=== PATIENT | male | born 1985 | race Caucasian/White ===

== ENCOUNTER 2022-07-23 06:35 | Outpatient (CLI) | payer BC, SELFPAY ==
[2022-07-23 06:47] VITALS: BP 115/77; PULSE 66; RESP 16; TEMP 36.9; O2SAT 95
[2022-07-23 08:01] VITALS: BP 110/77; PULSE 72; RESP 16; O2SAT 98
== END 2022-07-23 08:05 | disposition home or self-care (01) ==
PROVIDERS: PCP Student in an Organized Health Care Education/Training Program; Visit Provider Family Medicine
DX: M72.2 Plantar fascial fibromatosis (principal)
CPT/HCPCS: 76942; J3490

== ENCOUNTER 2024-02-03 22:38 | Inpatient (IN) | payer OTHER, SELFPAY ==
[2024-02-03 22:51] VITALS: BP 150/97; PULSE 61; RESP 16; TEMP 37; O2SAT 98; BMI 24.4
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
--- NOTE | 2024-02-03 23:18 | CRLHL7_ITS ---
For Patients: As a result of the Century Cures Act, medical imaging exams and procedure reports are released immediately into your electronic medical record. You may view this report before your referring provider. If you have questions, please contact your health care provider. INDICATION: Leg pain and swelling. TECHNIQUE: Ultrasound venous duplex lower right extremity. Compression venous exam was performed using kang-scale, color Doppler, and spectral Doppler analysis. COMPARISON: None. FINDINGS: Deep veins: Sonographic imaging demonstrates the right common femoral, deep femoral, superficial femoral, popliteal, posterior tibial, and the contralateral left common femoral veins to be fully compressible with normal color Doppler blood flow. Superficial veins: Greater saphenous vein is fully compressible. No popliteal cyst. Multiple enlarged lymph nodes in the right proximal thigh. IMPRESSION: 1. No sign of deep venous thrombosis in the right lower extremity. 2. Incidental note of multiple enlarged lymph nodes in the right proximal thigh, nonspecific possibly reactive. Dictated by Willi Curry MD @ 02/04/2024 12:31:12 AM (Electronically Signed)
[2024-02-03 23:51] LABS: Basophils Absolute Auto 0.02 K/uL (0.00-0.30); Basophils Percent Auto 0.2 % (0.0-3.0); Eosinophils Absolute Auto 0.21 K/uL (0.00-0.50); Eosinophils Percent Auto 2.3 % (0.0-7.0); Hematocrit 35.5 % (37.0-53.0); Hemoglobin* 11.6 gm/dL (13.5-17.5); Immature Granulocytes Pct Auto 1.1 %; Lymphocytes Percent Auto 14.2 % (20-44); Mean Corpuscular HGB Conc 33 gm/dL (32-36); Mean Corpuscular Hemoglobin 29 pg (26-34); Mean Corpuscular Volume 90 fL (80-100); Monocytes Percent Auto 11.3 % (0.0-11.0); Neutrophils Percent Auto 70.9 % (42.0-72.0); Platelet Count* 212 K/uL (140-440); RDW Coefficient of Variation % 12.8 % (11.5-15.5); Red Blood Count 3.96 m/uL (4.30-5.90); White Blood Count* 9.17 K/uL (4.50-11.00)
[2024-02-03 23:59] LABS: Slide Review Reflex No
[2024-02-04] VITALS (7 sets, daily range): BP systolic 124–143; BP diastolic 68–93; PULSE 52–62; RESP 16–18; TEMP 36.3–36.8; O2SAT 96–99; BMI 26.3
[2024-02-04 00:05] LABS: Chloride* 105 mmol/L (96-114); Potassium* 3.4 mmol/L (3.6-5.1); Sodium* 138 mmol/L (135-149)
[2024-02-04 00:08] LABS: Creatinine* 0.9 mg/dL (0.5-1.5); Est. Creatinine Clearance* 128.23; Estimated Glomerular Filt Rate 114 ml/min
[2024-02-04 00:09] LABS: Anion Gap 6 mEq/L (7-15); Blood Urea Nitrogen* 15 mg/dL (5-24); Carbon Dioxide* 27 mmol/L (20-32); Glucose* 121 mg/dL (60-115)
[2024-02-04] MEDS: VANCOMYCIN 1.5 GM/300 ML 1.5 GM/300 ML PIGGYBACK IVPB ×2 (00:19→11:47)
[2024-02-04 00:26] LABS: Procalcitonin* 0.09 ng/mL (<0.50)
--- OUTSIDE RECORDS SUMMARY | 2024-02-04 00:28 | XMS_ITS | Clinical Summary ---
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 [facility] Aspartate Aminotransferase (AST), P 43 8 - 48 U/L 01/28/2024 4:09 PM CDT [facility] Comment: Specimen was received with hemolysis slightly above the acceptable threshold. The AST result may be falsely elevated by 5-10 U/L due to this degree of hemolysis. Interpret in conjunction with other laboratory and clinical findings. Blood (Blood, Venous) 01/28/2024 3:26 PM CDT 01/28/2024 3:37 PM CDT Wolf Brower M.D. LAB BLOOD ADD-ON [facility] [address] [place] [address] * Lipase (01/28/2024 3:26 PM CDT) [facility] Lipase, S 43 13 - 60 U/L 01/28/2024 4: 13 PM CDT DTL Blood (Blood, Venous) 01/28/2024 3:26 PM CDT 01/28/2024 3:55 PM CDT Wolf Brower M.D. LAB BLOOD ADD-ON Performing Organization Address City/[facility]/ZIP Co de Phone Number [facility] [address] [place] [address], [facility] [address] [place] [address] * Amylase, Total (01/28/2024 3:26 PM CDT) Amylase, Total, S 65 28 - 100 U/L 01/28/2024 4:13 PM CDT DTL Blood (Blood, Venous) 01/28/2024 3:26 PM CDT 01/28/2024 3:55 PM CDT Wolf Brower M.D. LAB BLOOD ADD-ON Performing Organization Address City/[facility]/ZIP Co de Phone Number [facility] [address] [place] [address], [facility] 200 [place] [address] * (ABNORMAL) Basic Metabolic Panel (01/28/2024 3:26 PM CDT) Potassium, P 3.9 3.6 - 5.2 mmol/L 01/28/2024 4:10 PM CDT [facility] Sodium, P 138 135 - 145 mmol/L 01/28/2024 4:10 PM CDT [facility] Chloride, P 100 98 - 107 mmol/L 01/28/2024 4:10 PM CDT [facility] Bicarbonate, P 27 22 - 29 mmol/L 01/28/2024 4:10 PM CDT [facility] Anion Gap, P 11 7 - 15 01/28/2024 4:10 PM CDT [facility] BUN (Blood Urea Nitrogen), P 23 8 - 24 mg/dL 01/28/2024 4:10 PM CDT [facility] Creatinine 1.17 0.74 - 1.35 mg/dL 01/28/2024 4:10 PM CDT [facility] Estimated GFR (eGFR) 83 >=60 mL/min/BSA 01/28/2024 4:10 PM CDT [facility] Comment: Estimated GFR calculated using the 2020 CKD_EPI creatinine equation. Calcium, Total, P 10.1(H) 8.6 - 10.0 mg/dL 01/28/2024 4:10 PM CDT [facility] Glucose, P 129 70 - 140 mg/dL 01/28/2024 4:10 PM CDT [facility] Blood (Blood, Venous) 01/28/2024 3:26 PM CDT 01/28/2024 3:37 PM CDT Wolf Brower M.D. LAB BLOOD ADD-ON [facility] [address] [place] [address], [facility] 200 [place] [address] * DX Chest Portable 1 View (01/28/2024 3:24 PM CDT) Anatomical Region Laterality Modality Chest, Thoracic RST LOS, Tho racic ARZ LOS, Thoracic FLA LOS N/A Digital Radiography Impressions 01/28/2024 3:44 PM CDT No comparison. No acute displaced rib fractures. Incomplete visualization of the left clavicle. Enlarged cardiac silhouette. Otherwise negative chest. Narrative 01/28/2024 3:44 PM CDT EXAM: ??DX CHEST PORTABLE 1 VIEW Procedure Note Isa Knapp M.B.B.S. - 01/28/2024 EXAM: DX CHEST PORTABLE 1 VIEW IMPRESSION: No comparison. No acute displaced rib fractures. Incomplete visualizationof the left clavicle. Enlarged cardiac silhouette. Otherwise negativechest. Wolf Brower M.D. IMG DIAGNOSTIC IM AGING PROCEDURES from Last 3 Months Care Teams Unmanned Equipment Operator Relationship Specialty Start Date End Date Ana Reynaga M.D. [address] [place] [address] [phone] PCP - General 08/03/20
--- OUTSIDE RECORDS SUMMARY | 2024-02-04 00:29 | XMS_ITS ---
Author Organization [facility] Address [address] [place] [address] Care Team Providers Care Drupal Developer Name Role Phone Unavailable Unavailable Unavailable Surgery Details Not on file Complications Check Surgery Details section. Procedure Estimated Blood Loss Check Surgery Details section. Procedure Findings Check Surgery Details section. Procedure Specimens Taken Check Surgery Details section.
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
--- OUTSIDE RECORDS SUMMARY | 2024-02-04 00:29 | XMS_ITS | Clinical Summary ---
Author Organization [facility] Address [address] [place] [id number] Phone Care Team Providers Care Competitive Intelligence Analyst Name Role Phone Unavailable Primary Care Provider Unavailabl e Source Comments Get[employer] is fully rolled out on [employer]. Last update 11/25/08.[facility] Allergies Active Allergy Reactions Criticality Noted Date [...] 01/31/2024 Infrapatellar bursitis of right knee 01/31/2024 Encounters Date Type Department Care Team Description 01/31/2024 7:17 AM CDT - 02/02/2024 12:26 PM CDT Hospital Encounter [facility] Orthopaedic [id number] [place] [address] Nory Joaquin MD Isaksen, MD Mariana Coles Robert K, MD Wilcox, Nicci Flores MD Cellulitis of right knee Discharge Disposition: Discharged to home or self care (routine discharge) 01/31/2024 Travel from Last 3 Months Social History Tobacco Use Types Packs/Day Years [...] 01/31/2024 8:51 PM CDT Plan of Treatment Health Maintenance Due Date Last Done Comments Asthma Action Plan 1987 Asthma Control Test 1987 Dental Oral Exam 1987 Dental Prophylaxis 1987 Dental X-Ray: Bitewings 1987 Depression Management 1987 Periodontal Maintenance 10/23/2001 HEALTH MAINTENANCE PROTOCOL 10/23/2006 Imm: HPV (3 - 3-dose SCDM series) 05/17/2022 02/22/2022, 04/16/2021 Imm: COVID-19 ( season) 2023 12/03/2020, 11/05/2020 Imm: Flu (#1) 02/22/2024 03/06/2022, 03/24, 03/23/2017, Additional history exists PREVENTATIVE VISIT 01/07/2025 01/08/2024, 02/12/2021 Imm: DTaP/Tdap (11 - Td or Tdap) 01/27/2034 01/28/2024, 04/23/2017, 01/08/2011, Additional history exists Imm: Zoster (1 of 2) 10/23/2037 Imm: Hib Completed 11/18/1990 Imm: HepB Completed 12/26/1999, 08/1998, 12/22/1998 Imm: HepA Aged Out 04/16/2021, 01/02/2015 No lo nger eligible based on patient's age to complete this topic Imm: Pneumonia Peds or At-Risk less than 65 years Aged Out 04/16/2021 No longer shubham gible based on patient's age to complete this topic HIV Screening Completed 01/08/2024, 10/21, 08/12/2022, Additional history exists Imm: Meningitis Aged Out No longer el igible based on patient's age to complete this [...] included. CO2 27 22 - 30 mmol/L [facility] Glucose 116(H) 70 - 100 mg/dL [facility] BUN 12 6 - 20 mg/dL [facility] Creatinine 0.97 0.70 - 1.25 mg/dL [facility] Calcium 8.3(L) 8.6 - 10.0 mg/dL [facility] Sodium 141 135 - 148 mmol/L [facility] Potassium 3.9 3.5 - 5.3 mmol/L [facility] Chloride 106 92 - 108 mmol/L [facility] eGFR (2021 CKD-EPI) 104 >=60 ml/min/1.7 3m2 [facility] Comment: The estimated glomerular filtration rate (eGFR) was calculated using the CKD-EPI 2020 creatinine equation, which does not include race as a factor. This equation is validated in individuals 18 years of age and older, and eGFR is normalized to a body surface area of 1.73m^2. AnGap 8 8 - 16 mmol/L [facility] Blood 02/02/2024 7:06 AM CDT 02/02/2024 7:41 AM CDT Nicci Wiseman MD LABORATORY [facility] [address] [address] * (ABNORMAL) C-REACTIVE PROTEIN (02/02/2024 7:06 AM CDT) Only the most recent of3 resultswithin the time period is included. Pathologist [facility] C-Reactive Protein 176(H) <=4 mg/L [facility] Blood 02/02/2024 7:06 AM CDT 02/02/2024 7:41 AM CDT Alex Peña MD LABORATORY [facility] [address] [address] * (ABNORMAL) CBC WITH PLATELET (02/02/2024 7:06 AM CDT) WBC 9.57 4.00 - 10.00 k/cmm [facility] RBC 3.71(L) 4.60 - 6.00 m/cmm [facility] Hgb 11.0(L) 13.1 - 17.5 g/dL [facility] Hematocrit 34.0(L) 40.0 - 51.0 % [facility] MCV 91.6 80.0 - 100.0 fL [facility] MCH 29.6 25.0 - 32.0 pg [facility] MCHC 32.4 31.0 - 36.0 g/dL [facility] RDW 12.8 11.5 - 14.5 % [facility] Plt 151 150 - 400 k/cmm [facility] MPV 10.1 6.5 - 12.5 fL [facility] Blood 02/02/2024 7:06 AM CDT 02/02/2024 7:41 AM CDT Nicci Wiseman MD LABORATORY [facility] [address] [address] * (ABNORMAL) CBC WITH PLTS/AUTO DIFF (02/01/2024 5:40 AM CDT) Only the most recent of2 resultswithin the time period is included. WBC 10.67(H) 4.00 - 10.00 k/cmm [facility] RBC 4.05(L) 4.60 - 6.00 m/cmm [facility] Hgb 11.9(L) 13.1 - 17.5 g/dL [facility] Hematocrit 36.9(L) 40.0 - 51.0 % [facility] MCV 91.1 80.0 - 100.0 fL [facility] MCH 29.4 25.0 - 32.0 pg [facility] MCHC 32.2 31.0 - 36.0 g/dL [facility] RDW 12.8 11.5 - 14.5 % [facility] Plt 151 150 - 400 k/cmm [facility] MPV 10.5 6.5 - 12.5 fL [facility] Automated Abs Neutrophil 8.58(H) 1.70 - 6.50 k/cmm [facility] Comment:Preliminary ANC, Fin al Result to Follow Abs Immature Granulocyte 0.06 0.00 - 0.09 k/cmm [facility] Comment:The Immature Granulo cyte Absolute count contains metamyelocytes and myelocytes. Abs Neutrophil 8.58(H) 1.70 - 6.50 k/cmm [facility] Abs Lymphocyte 0.95 0.80 - 4.00 k/cmm [facility] Abs Monocyte 1.03(H) 0.20 - 1.00 k/cmm [facility] Abs Eosinophil 0.03 0.00 - 0.60 k/cmm [facility] Abs Basophil 0.02 0.00 - 0.20 k/cmm [facility] Blood 02/01/2024 5:40 AM CDT 02/01/2024 6:17 AM CDT Lilliana Robertson MD LABORATORY [facility] [address] [address] * LACTATE (LACTIC ACID) (01/31/2024 12:56 PM CDT) Lactate 0.8 0.7 - 2.1 mmol/L [facility] Blood 01/31/2024 12:5 6 PM CDT 01/31/2024 1:01 PM CDT Narrative [facility] - 01/31/2024 1:02 PM CDT Send specimen on ice! Nory Joaquin MD LABORATORY Performing Organization Address [facility]/ZIP Co de Phone Number [facility] [address] [address] * BODY FLUID CELL COUNT/DIFF (01/31/2024 12:00 PM CDT) Fluid Type SV Synovial [facility] Comment:Normal reference ran ges have not been determined; clinical correlation is recommended. Volume SV Fluid 5 mL [facility] Appearance SV Fluid Cloudy [facility] Color bf Bloody [facility] Rbc SV Fluid 88,000 cells/ul [facility] Nuc Ct SV Fluid 4,076 cells/ul [facility] Neutrophils SV 75 % [facility] Lymphocytes SV 4 % [facility] MONO/MACS FL 21 % [facility] Synovial fluid STRUCTURE OF RIGHT KNEE REGION / Unknown 01/31/2024 12:00 PM CDT 01/31/2024 12:26 PM CDT Narrative [facility] - 01/31/2024 3:26 PM CDT Please prioritize cell count Nory Joaquin MD LABORATORY Performing Organization Address City/[facility]/ZIP Co de Phone Number [facility] [address] [address] * BODY FLUID CULTURE:INCLUDES GRAM STAIN (01/31/2024 12:00 PM CDT) Final Report No growth. [facility] Gram Stain Report Smear not concentrated. Few WBC's seen. No organisms seen. [facility] Synovial fluid STRUCTURE OF RIGHT KNEE REGION / Unknown 01/31/2024 12:00 PM CDT 01/31/2024 1:14 PM CDT Nory Joaquin MD LAB MICROBIOLOGY Performing Organization Address [facility] Co de Phone Number [facility] [address] [address] * ANTIBODY SCREEN (01/31/2024 10:49 AM CDT) Joy Screen Negative [facility] Blood 01/31/2024 10:4 9 AM CDT 01/31/2024 11:17 AM CDT Nory Joaquin MD LAB TRANSFUSION SER VICES Performing Organization Address [facility] Co de Phone Number [facility] [address] [address] * BLOOD TYPING-ABO/RH (01/31/2024 10:49 AM CDT) ABORHG A NEG [facility] Blood 01/31/2024 10:4 9 AM CDT 01/31/2024 11:17 AM CDT Nory Joaquin MD LAB TRANSFUSION SER VICES Performing Organization Address [facility] Co de Phone Number [facility] [address] [address] * CT RIGHT KNEE NO IV CONTRAST [...] Radiologist: Min Kirkpatrick Reading Resident: Amauri Interiano 01/31/2024 10:09 AM CDT [...] lateral to the knee joint initiated above [id number] caudally and extends to the mid tibia [...] and lateral to the kneejoint initiated above [id number] caudally and extends to the mid tibiadistally. [...] - BLUE (01/31/2024 8:18 AM CDT) Pathologist [facility] BLUE TUBE [facility] Comment:Blue top(Sodium citr ate) tubes are kept for 3 days from the collection date. Blood 01/31/2024 8:18 AM CDT 01/31/2024 8:22 AM CDT Nory Joaquin [facility] LABORATORY [facility] [address] [address] * (ABNORMAL) ED CHEMISTRY LABS(NA,K,CL,CO2,GLU,CREAT,CA-IONIZED,ANION GAP) (01/31/2024 8:18 AM CDT) Sodium 136 135 - 148 mmol/L [facility] Chloride 105 92 - 108 mmol/L [facility] AnGap 6(L) 8 - 16 mmol/L [facility] Glucose 109(H) 70 - 100 mg/dL [facility] ICA, Actual 4.39(L) 4.40 - 5.20 mg/dL [facility] ICA, pH Corrected 4.45 4.40 - 5.20 mg/dL [facility] Creatinine 0.97 0.70 - 1.25 mg/dL [facility] BICARB 26 22 - 26 mEq/L [facility] eGFR (2020 CKD-EPI) 104 >=60 ml/min/1.7 3m2 [facility] Comment: The estimated glomerular filtration rate (eGFR) was calculated using the CKD-EPI 2020 creatinine equation, which does not include race as a factor. This equation is validated in individuals 18 years of age and older, and eGFR is normalized to a body surface area of 1.73m^2. Potassium 3.6 3.5 - 5.3 mmol/L [facility] Blood 01/31/2024 8:18 AM CDT 01/31/2024 8:25 AM CDT Nory Joaquin MD LABORATORY Performing Organization Address [facility] Co de Phone Number [facility] [address] [address] * (ABNORMAL) SED RATE (ESR) (01/31/2024 8:18 AM CDT) Sed Rate 53(H) 2 - 10 mm/hr [facility] Blood 01/31/2024 8:18 AM CDT 01/31/2024 8:46 AM CDT Nory Joaquin MD LABORATORY Performing Organization Address [facility] de Phone Number [facility] [address] [address] * (ABNORMAL) PROTHROMBIN (PT) & INR (01/31/2024 8:18 AM CDT) PT 13.7(H) 9.0 - 12.5 sec [facility] INR 1.2(H) 0.8 - 1.1 [facility] Comment: Warfarin Therapeutic Range: Standard Intensity: 2.0 - 3.0 High Intensity: 2.5 - 3.5 Blood 01/31/2024 8:18 AM CDT 01/31/2024 11:03 AM CDT Nory Joaquin MD LABORATORY Performing Organization Address City/[facility] Co de Phone Number [facility] [address] [address] from Last 3 Months Advance Directives For more information, please contact: [phone] * Full Code (Latest Code Status on [...]
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
--- OUTSIDE RECORDS SUMMARY | 2024-02-04 00:30 | XMS_ITS | Encounter Summary ---
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 02/02/2024, Discharge Location: Home, Anticipated Discharge Time: Before 10 am, Discharge Medication Orders: DC Med Orders Final, Does not apply, PROTOCOL, Starting on Fri02/02/24 at 0957, Until Fri02/02/24 at 1535 escitalopram (LEXAPRO) tablet 20 mg 20 mg, Oral, DAILY, First dose (after last modification) on 01/31/24 at 2125, Until Discontinued 2148 (Given - Provider: Christine Guzman RN) 0855 (Given - Provider: Mack Still, ERI) 0853 (Given - Provider: Last Pierre RN) HYDROmorphone PF (DILAUDID) 1 mg/mL injection 0.5 mg (COMPLETED) 0.5 mg, IV Push, ONE TIME, 1 dose, On 01/31/24 at 1205 1205 (Given - Provider: Sophie Meraz RN) HYDROmorphone PF (DILAUDID) 1 mg/mL injection 0.5 mg (COMPLETED) 0.5 mg, IV Push, ONE TIME, 1 dose, On 01/31/24 at 1830 1832 (Given - Provider: Kayden Moore RN) ibuprofen (MOTRIN;ADVIL) tablet 600 mg (COMPLETED) 600 mg, Oral, ONE TIME, 1 dose, On 01/31/24 at 0815 1547 (Given - Provider: Sophie Meraz RN) ketorolac (TORADOL) 30 mg/mL injection 15 mg (CANCELED) 15 mg, IV Push, Q6H, 20 doses, First dose on Fri02/01/24 at 1645, Last dose on Fri02/06/24 at 1200 1655 (Given - Provider: JEREMIE Mccauley) levoFLOXacin (LEVAQUIN) tablet 750 mg 750 mg, Indication (Select One): Infection - Suspected, SITE (Select all that apply): Skin/Soft Tissue, Cultures Ordered? Yes, Oral, DAILY, 5 doses, First dose on Fri02/02/24 at 1000, Last dose on Fri02/06/24 at 0800 1033 (Given - Provider: Last Pierre RN) OLANZapine (ZyPREXA) injection 5 mg (COMPLETED) 5 mg, IV Push, ONE TIME, 1 dose, On 01/31/24 at 1540 1544 (Given - Provider: Sophie Meraz RN) ondansetron (ZOFRAN) 4 mg/2 mL injection 4 mg (COMPLETED) 4 mg, IV Push, ONE TIME, 1 dose, On 01/31/24 at 1010 1018 (Given - Provider: Sophie Meraz RN) piperacillin-tazobactam (ZOSYN) 4.5 g in NaCl 0.9% IVPB (CANCELED) 4.5 g, Indication (Select One): Infection - Confirmed, SITE (Select all that apply): Bone/Joint, Skin/Soft Tissue, Cultures Ordered? Yes, Intravenous, Q6H, First dose on 01/31/24 at 1245, Until Discontinued 1251 (New Bag - Provider: Sophie Meraz RN)1326 (Infusion completed - Provider: Sophie Meraz RN)1808 (New Bag - Provider: Sophie Meraz RN)1856 (Infusion completed - Provider: Sophie Meraz RN) 0037 (New Bag - Provider: Trini Ortiz, RN)0107 (Infusion completed - Provider: Trini Ortiz, RN)0537 (New Bag - Provider: Trini Ortiz, RN)0642 (Infusion completed - Provider: Trini Ortiz, RN)1214 (New Bag - Provider: Mack Still, ERI)1317 (Infusion completed - Provider: Mack Still RN)1810 (New Bag - Provider: JEREMIE Mccauley - Comment: rt hand)1857 (Infusion completed - Provider: Mack Still, ERI)2346 (New Bag - Provider: Carly Durham, ERI) 0016 (Infusion completed - Provider: Carly Durham RN)0527 (New Bag - Provider: Carly Durham, ERI)0557 (Infusion completed - Provider: Carly Durham, ERI) sennosides (SENOKOT) tablet 8.6 mg 8.6 mg, Oral, BID, First dose on 01/31/24 at 2050, Until Discontinued 2148 (Given - Provider: Christine Guzman RN) 0855 (Given - Provider: Mack Still, ERI)2022 (Given - Provider: Carly Durham, ERI) 0853 (Given - Provider: Last Pierre RN) sodium chloride 0.9% bolus 1,000 mL (COMPLETED) 1,000 mL, Intravenous, Administer over 30 Minutes, IV BOLUS, 1 dose, On 01/31/24 at 1555 1550 (New Bag - Provider: Sophie Meraz RN)1808 (Infusion completed - Provider: Sophie Meraz RN) vancomycin (VANCOCIN) 2,000 mg in NaCl 0.9% 500 mL IVPB (COMPLETED) 2,000 mg (rounded from 2,075 mg = 25 mg/kg ? 83 kg Order-specific weight), Dose By? Phamacist to Dose, Indication (Select One): Infection - Confirmed, SITE (Select all that apply): Bone/Joint, Skin/Soft Tissue, Cultures Ordered? Yes, Intravenous, ONE TIME, 1 dose, On 01/31/24 at 1245 1358 (New Bag - Provider: Sophie Meraz RN)1638 (Infusion completed - Provider: Kayden Moore RN) vancomycin (VANCOCIN) 2,000 mg in NaCl 0.9% 500 mL IVPB (CANCELED) 2,000 mg, Indication (Select One): Infection - Suspected, SITE (Select all that apply): Skin/Soft Tissue, Cultures Ordered? Yes, Dose By? Phamacist to Dose, Intravenous, Q12H, First dose on 02/01/24 at 0200, Until Discontinued 0203 (New Bag - Provider: Trini Ortiz RN)0433 (Infusion completed - Provider: Trini Ortiz RN)1412 (New Bag - Provider: JEREMIE Mccauley)1852 (Infusing - Provider: Mack Still RN - Comment: pt line went off at certain time vanco was restarted an hour after and will probably be completed at 9pm.)2229 (Infusion completed - Provider: Carly Durham RN) 0608 (New Bag - Provider: Carly Durham RN)0857 (Infusion completed - Provider: Last Pierre, ERI) VTE prophylaxis contraindicated(Linked Group 2) Contraindication Reason: Procedure, Does not apply, PROTOCOL, Starting on 01/31/24 at 2049, Until 02/02/24 at 1535 Continuous Medication Order 01/31/2024 02/01/2024 02/02/2024 NaCl 0.9% infusion () at 100 mL/hr, Intravenous, CONTINUOUS, Starting on 01/31/24 at 2005, Until 02/01/24 at 2014 2015 (New Bag - Provider: Hellen Rouse RN) 1999 (Stopped - Provider: Carly Durham, EIR) PRN Medication Order 01/31/2024 02/01/2024 02/02/2024 acetaminophen (TYLENOL) tablet 650 mg 650 mg, Oral, Q4H PRN, Starting on 01/31/24 at 2049, Until 02/02/24 at 1535, Temp > 38.6 C, Mild Pain (Use First) 0546 (Given - Provider: Trini Ortiz RN)153 (Given - Provider: JEREMIE Mccauley)2022 (Given - Provider: Carly Durham, ERI) 225 (Given - Provider: Carly Durham, ERI)852 (Given - Provider: Last Pierre RN) alum & mag hydroxide-simeth (MAALOX PLUS) suspension 30 mL 30 mL, Oral, TID PRN, Starting on 02/01/24 at 1640, Until 02/02/24 at 1535, GI Upset HYDROmorphone (DILAUDID) tablet 2 mg (CANCELED) 2 mg, Oral, Q4H PRN, Starting on 01/31/24 at 2126, Until 02/01/24 at 1730, Moderate Pain (Use First) 2156 (Given - Provider: Christine Guzman RN) HYDROmorphone (DILAUDID) tablet 2 mg 2 mg, Oral, Q4H PRN, Starting on 02/01/24 at 1729, Until 02/02/24 at 1535, Moderate Pain (Use First), Severe Pain (Use First) HYDROmorphone PF (DILAUDID) 1 mg/mL injection 0.5 mg 0.5 mg, IV Push, Q4H PRN, Starting on 01/31/24 at 2120, Until 02/02/24 at 1535, Severe Pain (Use Second) 152 (Given - Provider: Mack Still, ERI)2024 (Given - Provider: Carly Durham, ERI) 226 (Given - Provider: Carly Durham, ERI) ketorolac (TORADOL) 30 mg/mL injection 15 mg 15 mg, IV Push, Q6H PRN, Starting on 8/11/24 at 1729, Until 02/02/24 at 1535, Moderate Pain, use second 2128 (Given - Provider: Carly Durham, ERI) 0531 (Given - Provider: Carly Durham RN) melatonin tablet 3 mg 3 mg, Oral, BEDTIME PRN, Starting on 01/31/24 at 2049, Until 02/02/24 at 1535, Sleep ondansetron (ZOFRAN) 4 mg/2 mL injection 4 mg 4 mg, IV Push, Q 8H PRN, Starting on 01/31/24 at 2049, Until 02/02/24 at 1535, Nausea/Vomiting (Use First) 0533 (Given - Provider: Trini Ortiz RN)165 (Given - Provider: JEREMIE Mccauley) 1033 (Given - Provider: Last Pierre RN) Linked Groups Order Group 1: DC MED REC REVIEW BY PHARMACYJump to med Discharge Date: 02/02/2024, Discharge Location: Home, Anticipated Discharge Time: Before 10 am, Discharge Medication Orders: DC Med Orders Final, Does not apply, PROTOCOL, Starting on 02/02/24 at 0957, Until 02/02/24 at 1535 And Discharge Med Rec Final Review by Pharmacy (COMPLETED) Routine, Order to be placed by provider after medications have been entered for discharge and are ready for review by Pharmacist. This order can be placed multiple times if changes or additions have been made to medications for discharge. Choose the Preliminary DC Med Rec review when placing orders prior to the day of discharge. Choose Final DC Med Rec when all medication changes have been entered. If DC Med Rec needed now, please page the Pharmacist covering the patient to inform them., Discharge Date: 02/02/2024, Discharge Location: Home, Anticipated Discharge Time: Before 10 am Group 2: VTE prophylaxis contraindicatedJump to med Contraindication Reason: Procedure, Does not apply, PROTOCOL, Starting on 01/31/24 at 2049, Until 02/02/24 at 1535 And VTE - Prophylaxis Contraindication Communication (COMPLETED) Contraindication Reason: Procedure documented in this encounter
--- OUTSIDE RECORDS SUMMARY | 2024-02-04 00:30 | XMS_ITS | Clinical Summary ---
Author Organization [facility] Address [address] [place] [address] Care Team Providers Care Balance Clerk Name Role Phone Randy Cullen MD Primary Care Provider Unavailabl e Source Comments The information displayed in Care Everywhere may not contain all available information, such as information contained in [employer] systems. Please fax requests for additional information to [facility]'s Health Information Management Department at .[facility] Allergies Active Allergy Reactions Criticality Noted Date Comments Iodine Anaphylaxis High 04/23/[address] dye Penicillins Other (see comments) 04/23/2017 flu like symptoms Medications Medication Sig Dispensed Refills Start Date End Date Status sertraline (ZOLOFT) 50 mg tablet Take 50 mg by mouth daily. Active lamoTRIgine (LaMICtal) 100 mg tablet Take 2 tablets by mouth daily. 2 07/15/2017 Active cyclobenzaprine (FLEXERIL) 5 mg tablet Take 1 tablet (5 mg total) by mouth 2 (two) times a day as needed for muscle spasms. 60 tablet 3 07/30/2018 Active Descovy 200-25 mg tablet tablet Take 1 tablet by mouth once daily 05/09/2020 Active imiquimod (ALDARA) 5 % cream APPLY 1 PACKET EXTERNALLY TO THE AFFECTED AREA 3 TIMES A WEEK. WASH HANDS PRIOR TO AND FOLLOWING APPLICATION 12 each 08/17/2020 Active Active Problems Problem Noted Date Diagnosed Date Anal warts 04/20/2020 Irritable bowel syndrome with diarrhea 8 Last Assessment & Plan: -patient likely has irritable bowel syndrome based on the Damian IV criteria -will check for other differential diagnosis such as inflammatory bowel disease, celiac disease, GI bleed, electrolyte imbalances -will call patient with results History of methamphetamine abuse 10/16/2017 Last Assessment & Plan: -patient has history methamphetamine abuse and will check CMP History of alcohol abuse 10/16/2017 Last Assessment & Plan: -patient has a history of alcohol abuse so will check CMP Major depressive disorder 08/14/2017 Plantar fasciitis of right foot 08/14/2017 Last Assessment & Plan: -advised patient on resting and avoiding high impact exercises like running -educated patient on stretches for plantar fasciitis, orthotics for feet, proper shoes, other cardiovascular exercises with low impact (biking, swimming) -educated patient on prognosis of plantar fasciitis as it will take a long time to heal. -provided up-to-date patient resources for plantar fasciitis to patient. Immunizations Name Administration Dates Next Due DT, Pediatric 12/22/1998 DTP 10/23/1989, 9,04/25/1988,1987 DTaP 01/17/1993 Hep A, Adult 01/02/2015 Hep B, Ped / Adolescent 12/26/1999,01/23/1999, Hib, PRP-D 11/18/1990 Influenza Quadrivalent PF IM 03/23/2017 Influenza, Trivalent (Age 9+) 04/07/2013 ,05/23/2011,06/08/2008,2006 MMR 10/09/1999,03/04/1999,04/17/1989 OPV Live, Trivalent 01/17/1993, 0,04/25/1988,1987 Tdap 04/23/2017,01/08/2011 Tetanus-diphtheria (Td) 2-2, PF, Adult 10/09/1999 Family History Medical History Relation Name Comments No Known Problems Father Breast cancer Mother Relation Name Status Comments Father Alive Mother Alive Social History Tobacco Use Types Packs/Day Years Used Date Smoking Tobacco: Former Cigarettes 0.3 2 Smokeless Tobacco: Never Alcohol Use Standard Drinks/Week Comments No 0 (1 standard drink = 0.6 oz pur e alcohol) Sex and Gender Information Value Date Recorded Sex Assigned at Not on file Gender Identity Not on file Sexual Orientation Not on file Last Filed Vital Signs Vital Sign Reading Time Taken Comments Blood Pressure 139/89 07/05/2020 9:18 AM PST Pulse 61 07/05/2020 9:18 AM PST Temperature 36.1 ??C (97 ??F) 07/05/2020 9:18 AM PST Respiratory Rate 16 07/05/2020 9:18 AM PST Oxygen Saturation 100% 07/05/2020 9:18 AM PST Inhaled Oxygen Concentration - - Weight 78.9 kg (174 lb) 07/05/2020 9:18 AM PST Height 172.7 cm (5' 8) 07/05/2020 9:18 AM PST Body Mass Index 26.46 07/05/2020 9:18 AM PST Plan of Treatment Health Maintenance Due Date Last Done Comments Lipid Panel Screening 1987 COVID-19 Vaccine(s) ( season) 2023 Influenza Vaccine (#1) 2024 7, 04/07/2013, 05/23/2011, Additional history exists DTaP,Tdap,and Td Vaccines (9 - Td or Tdap) 04/23/2027 04/23/2017, 01/08/2011, 10/09/1999, Additional history exists IPV Vaccines Completed 01/17/1993, 08/1989, 04/25/1988, Additional history exists Hepatitis B Vaccines Completed 12/26/1999, 01/23/1999, 12/22/1998 Hepatitis A Vaccines Aged Out 01/02/2015 No long er eligible based on patient's age to complete this topic Pneumococcal Vaccine 0-64 yrs Aged Out No longer eligible based on patient's age to complete this topic Care Teams Balance Clerk Relationship Specialty Start Date End Date Randy Cullen MD PCP - General Internal Medicine 06/10/17
--- OUTSIDE RECORDS SUMMARY | 2024-02-04 00:30 | XMS_ITS | Referral Summary ---
Author Organization [facility] Address [address] [place] [address] Care Team Providers Care Taker Out Name Role Phone Randy Cullen MD Primary Care Provider Unavailabl e Source Comments The information displayed in Care Everywhere may not contain all available information, such as information contained in [employer] systems. Please fax requests for additional information to [facility]'s Health Information Management Department at .[facility] Allergies Active Allergy Reactions Criticality Noted [...] 04/23/2017,01/08/2011 Tetanus-diphtheria (Td) 2-2, PF, Adult 10/09/1999 Social History Tobacco Use Types Packs/Day Years [...] 07/05/2020 9:18 AM PST Plan of Treatment Not on file Care Teams Taker Out Relationship Specialty Start Date End Date Randy Cullen MD PCP - General Internal Medicine 06/10/17
--- OUTSIDE RECORDS SUMMARY | 2024-02-04 00:30 | XMS_ITS | Encounter Summary ---
Author Organization [facility] Address [address] [place] [address] Care Team Providers Care Retail Financial Analyst Name Role Phone Randy Cullen MD Primary Care Provider Unavailabl e Encounter Details Date Type Department Care Team (Late st Contact Info) Description 05/13/2019 [facility] [employer] [address] [address] [place] [address] [place] [address] [facility] [address] [place] [phone] Pre-employment examination Social History Tobacco Use Types Packs/Day Years Used Date Smoking Tobacco: Former Cigarettes 0.3 2 Smokeless Tobacco: Never Alcohol Use Standard Drinks/Week Comments No 0 (1 standard drink = 0.6 oz pur e alcohol) Sex and Gender Information Value Date Recorded Sex Assigned at Not on file Gender Identity Not on file Sexual Orientation Not on file documented as of this encounter Plan of Treatment Not on file documented as of this encounter Visit Diagnoses Diagnosis Pre-employment examination documented in this encounter Care Teams Retail Financial Analyst Relationship Specialty Start Date End Date Randy Cullen MD PCP - General Internal Medicine 06/10/17 documented as of this encounter
--- OUTSIDE RECORDS SUMMARY | 2024-02-04 00:30 | XMS_ITS | Clinical Summary ---
Author Organization [employer] [facility] Address [place], [place] [address] Care Team Providers Care Traffic Analyst Name Role Phone Radha Deshpandedith Jj Unavailable [phone] Fernando Rayo DO Primary Care Provider [phone] Allergies Active Allergy Reactions Criticality Noted Date Comments Covid-19 Vaccine, Mrna, [id number], Lnp-S (Moderna) Anaphylaxis High 01/08/2024 Diatrizoate Allergen Anaphylaxis High 12/16/2006 cut off air Gadodiamide Anaphylaxis High 09/08/2016 Penicillins *Unknown - Pt Doesn' t Remember 12/16/2006 Medications Medication Sig Dispensed Refills Start Date End Date Status albuterol HFA (PRO-AIR; VENTOLIN; PROVENTIL) 90 mcg/actuation inhalerIndications:Exe rcise-induced asthma Inhale 1-2 Puffs by mouth every 4 hours if needed. 1 Each 04/16/2021 Active tretinoin (RETIN-A) 0.025 % 0.025 % cream APPLY A SMALL AMOUNT TO AFFECTED AREA(S) EVERY EVENING 02/17/2023 Active EMTRICITABINE 200 MG-TENOFOVIR ALAFENAMIDE FUMARATE 25 MG TABLET (Descovy) 200-25 mgIndications:Exposure to HIV TAKE 1 TABLET BY MOUTH EVERY DAY 90 Tablet 3 06/26/2023 Active ondansetron (ZOFRAN ODT) 4 mg disintegrating tabletIndications:Dehy dration,Nausea Place 1 Tablet (4 mg) on the tongue every 8 hours if needed for Nausea/Vomiting. 30 Tablet 09/26/2023 Active escitalopram oxalate (LEXAPRO) 20 mg tabletIndications:Anxi ety with depression Take 1 Tablet (20 mg) by mouth every morning. 90 Tablet 3 09/26/2023 Active Active Problems Problem Noted Date Diagnosed Date Anal warts 04/20/2020 Major depressive disorder 08/14/2017 Methamphetamine abuse 01/18/2016 Restless legs syndrome 01/17/2016 Panic attacks 09/06/2015 HSV-2 (herpes simplex virus 2) infection 015 Overview: Sacral area Benzodiazepine abuse 10/26/2011 Exercise induced bronchospasm 12/16/2006 Generalized anxiety disorder 12/16/2006 Attention deficit disorder with hyperactivity(31 4.01) Allergic rhinitis, cause unspecified Overview: seasonal allergies Tobacco use disorder Health care maintenance PrEP Encounters Date Type Department Care Team Description 01/12/2024 Telephone [facility] [address] [place] [address] Fernando Rayo DO Results 01/08/2024 12:50 PM CDT Office Visit [facility] [address] [place] [address] Fernando Rayo DO Physical (38 year old ); Form (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 Bobo on 11/21/23) 11/21/2023 10:51 AM CDT - 11/21/2023 11:45 AM CDT Surgery [address] [address] Richard Bobo MD LEFT HAND MASS EXCISION 11/21/2023 10:00 AM CDT - 11/21/2023 11:45 AM CDT Hospital Encounter [facility] [address] [place] [address] Richard Bobo MD Discharge Disposition: Home Self Care 11/20/2023 Travel from Last 3 Months Immunizations Name Administration Dates Next Due AMB Influenza, IIV3 (Age >=3 years)(Flu Clinic Only) 06/08/2008 COVID-19 vaccine (Moderna 100mcg/0.5mL) PF, MDV 12/03/2020,11/05/2020 DT (Age < 7 years) 12/22/1998 DTP 10/23/1989, 9,04/25/1988,1987 DTaP 01/17/1993 HIB PRP-D (ProHIBIT) 11/18/1990 HPV 9 (Gardasil 9) 02/22/2022,04/16/2021 Hepatitis A (Adult) 04/16/2021,01/02/2015 Hepatitis B (Peds) 12/26/1999,01/23/1999, 999 Influenza Virus, Unspecified 05/23/2011,06/08/20 08,05/15/2007 Influenza, IIV3 (Age >=3 years) 04/07/20 13,05/23/2011,05/15/2007,2005,04/10/2005,06/02/2003 Influenza, IIV4 03/06/2022,04/16/2021,03/23/2017 MMR 10/09/1999,03/04/1999,04/17/1989 Oral Polio Vaccine 01/17/1993, 0,04/25/1988,1987 Pneumococcal Poly,23-Valent (Pneumovax) 04/16/2021 Td (Age >=7 Years) 10/09/1999 Tdap 04/23/2017,01/08/2011 Family History Medical History Relation Name Comments Hypertension Father Cancer-breast Mother Hyperlipidemia Mother Psychiatric illness Sister 1 OCD Good Health Sister 2 Cancer-colon No Family History Cancer-prostate No Family History Relation Name Status Comments Father Alive Mother Alive Sister 1 Alive Sister 2 Alive Social History Tobacco Use Types Packs/Day Years Used Date Smoking Tobacco: Former Passive Smoke Exposure: Past Smokeless Tobacco: Never Tobacco Cessation:Counseling Given: Yes Comments:quit 2015 Alcohol Use Standard Drinks/Week Comments No 0 (1 standard drink = 0.6 oz pur e alcohol) sober for 5 years PHQ-2 Answer Date Recorded PHQ-2 TOTAL SCORE 0 01/08/2024 Social Connections Answer Date Recorded Frequency of Communication with Friends and Fami ly 0 09/26/2023 Financial Resource Strain Answer Date R ecorded Difficulty of Paying Living Expenses 3 09/26/2023 Difficulty of Paying Living Expenses Not on file 09/26/2023 Food Insecurity Answer Date Recorded Worried About Running Out of Food in the Last Ye ar 1 09/26/2023 Transportation Needs Answer Date Record ed Lack of Transportation (Medical) 1 09/26/2023 Housing Stability Answer Date Recorded Unable to Pay for Housing in the Last Year 1 09/26/2023 Sex and Gender Information Value Date Recorded Sex Assigned at Not on file Gender Identity Not on file Sexual Orientation Not on file Obstetrics History Last Filed Vital Signs Vital Sign Reading Time Taken Comments Blood Pressure 110/72 01/08/2024 1:01 PM CDT Pulse 61 01/08/2024 1:01 PM CDT Temperature 36.7 ??C (98 ??F) 11/21/2023 11:35 AM CDT Respiratory Rate 16 11/21/2023 11:35 AM CDT Oxygen Saturation 97% 01/08/2024 1:01 PM CDT Inhaled Oxygen Concentration - - Weight 84.5 kg (186 lb 4.8 oz) 01/08/2024 1:01 P M CDT Height 185.4 cm (6' 1) 01/08/2024 1:01 PM CDT Body Mass Index 24.58 01/08/2024 1:01 PM CDT Plan of Treatment Upcoming Encounters Date Type Department Care Team (Late st Contact Info) Description 02/06/2024 10:10 AM CDT Office Visit [facility] [address] [place] [address] Fernando Rayo DO [address] [place] [address] 02/09/2024 8:30 AM CDT Office Visit [facility] [address] [place] [address] Fernando Rayo, DO [address] [place] [address] Health Maintenance Due Date Last Done Comments COVID-19 vaccine series (2022- season) 2023 12/03/2020, 11/05/2020 Influenza for age 9-49 02/22/2024 , 04/16/2021, 03/23/2017, Additional history exists BMI (ht and wt on same day) for age 18+ 01/07/2025 01/08/2024, 04/23/2023, 07/10/2022, Additional history exists Depression screening for age 12+ 01/11/2025 01/12/2024, 01/08/2024, 09/26/2023, Additional history exists Tetanus booster 04/23/2027 04/23/2017, 12/21, 01/08/2011, Additional history exists Lipids for age 35-44 01/07/2029 01/08/2024, 02/12/2021, 12/28/2009, Additional history exists Hepatitis C screening for age 18-79 Completed 07/28/2014, 10/22/2010 Tdap Completed 04/23/2017, 01/08/2011 Pneumococcal series for age 6-64 Aged Out 04/16/2021 No longer eligible based on patient's age to complete this topic HIV for age 15-65 Completed 01/08/2024, , 08/12/2022, Additional history exists Procedures Procedure Name Priority Date/Time Associated Diagnosis Comments ANTI HBS QUANT AHS Add On 01/08/2024 1: 52 PM CDT Need for hepatitis B screening test LIPID PANEL W REFLEX MEASURED LDL Routine 01/08/2024 1:52 PM CDT Lipid screening ANTI HIV 1/2 Routine 01/08/2024 1:52 PM CDT Medication management RETICULOCYTES Routine 01/08/2024 1:52 PM CDT Medication management PATH TISSUE EXAM Today 11/21/2023 11:22 AM CDT [place] EXC PETAR/VAS MAL SFT TIS HAND/FNGR SUBFASC<1.5CM Elective 11/21/2023 10:46 AM CDT Ganglion of left hand Case Notes AVERAGE-T/F SUPINEHAND TABLEHAND TRAYPA TO ASSIST Special Needs 6 ft, 78.5 kg, BMI 22.93LOCAL ONLY ANTI HCV Routine 07/28/2014 3:03 PM HEALTH PSYCHOLOGIST Screen for STD (sexually transmitted disease) from Last 3 Months or Most Recently Relevant to Health Maintenance Results * (ABNORMAL) LIPID PANEL W REFLEX MEASURED LDL (01/08/2024 1:52 PM CDT) CHOLESTEROL,TOTAL 207(H) 100 - 199 mg/dL 01/09/2024 8:47 AM CDT [facility] [employer] Comment: Cholesterol, Total Reference Ranges Desirable <200 mg/dL Borderline 200-239 mg/dL High >=240 mg/dL TRIGLYCERIDES 104 <150 mg/dL 01/09/2024 8:47 AM CDT [facility] [employer] [facility] HDL CHOLESTEROL 45 >40 mg/dL 8:47 AM CDT [facility] NON-HDL CHOLESTEROL 162(H) <145 mg/dl 01/09/2024 8:47 AM CDT [facility] CHOL/HDL RATIO 4.60(H) <4.50 01/09/2024 8:47 AM CDT [facility] LDL CHOLESTEROL 141(H) <=130 mg/dL 01/09/2024 8:47 AM CDT [facility] VLDL CHOLESTEROL 21 <=30 mg/dL 01/09/2024 8:47 AM CDT [facility] [employer] PROVIDER ORDERED STATUS RANDOM 01/09/2024 8:47 AM CDT [facility] Blood BLOOD SPECIMEN / Unknown Butterfly / Unknown 01/08/2024 1:52 PM CDT 01/08/2024 1:52 PM CDT [employer] KHALIL CHEMISTRY Performing Organization Address [facility]/ZIP Co de Phone Number [facility] [employer], [facility] [address] [place] [address], * ANTI HBS QUANT AHS - Hepatitis B Immunity (01/08/2024 1:52 PM CDT) ANTI HBS QUANT 342.00 mIU/mL 01/12/2024 8:42 AM CDT [facility] Blood BLOOD SPECIMEN / Unknown Butterfly / Unknown 01/08/2024 1:52 PM CDT 01/08/2024 1:52 PM CDT Narrative [facility] - 01/12/2024 8:42 AM CDT <8.5 Considered not immune to HBV infection. >=8.5 to < 11.5 Indeterminate result, unable to dertermine if antibody is present at levels consistent with immunity. >= 11.5 Considered immune to HBV infection. Biotin supplements may cause clinically significant interference for this test assay. ??If interference is suspected, it is strongly recommended that biotin is discontinued for at least one week prior to retesting. Fernando Nasimpeg KHALIL SEND OUTS Performing Organization Address [facility] Co de Phone Number [facility] [employer], [facility] [address] [place] [address], * ANTI HIV 1/2 (01/08/2024 1:52 PM CDT) Pathologist [facility] HIV-1/HIV-2 SCREEN Non-Reacti ve Non-Reacti ve 01/09/2024 8:05 AM CDT [facility] Comment:HIV-1 p24 and HIV-1/ HIV-2 Ab Not Detected. Blood BLOOD SPECIMEN / Unknown Butterfly / Unknown 01/08/2024 1:52 PM CDT 01/08/2024 1:52 PM CDT [employer] DO SEND OUTS Performing Organization Address City/[facility]/ZIP Co de Phone Number [facility] [employer], [facility] [address] [place] [address], * RETICULOCYTES (01/08/2024 1:52 PM CDT) RETIC% 0.8 0.5 - 1.5 % 01/08/2024 9:48 PM CDT [facility] RETIC (ABSOLUTE) 0.04 0.03 - 0.08 mil/cu mm 01/08/2024 9:48 PM CDT [facility] Blood BLOOD SPECIMEN / Unknown Butterfly / Unknown 01/08/2024 1:52 PM CDT 01/08/2024 1:52 PM CDT Fernando Rayo DO HEMATOLOGY [facility] [address] * PATH TISSUE EXAM (11/21/2023 11:22 AM CDT) Pathologist [facility] Case Report Pathology Report ?Case: [id number] ? Authorizing Provider: ??Richard Bobo MD ??Collected: ? 11/21/2023 1122 ? Ordering Location: ? [facility] ?Received: ?11/21/2023 1241 ? Pathologist: ? Ru Bruce Jr., ? MD ? Specimen: ?Left Hand, Left Hand Mass - PERMANENT ? 11/24/2023 1:54 PM CDT [facility] Final Diagnosis SOFT TISSUE, LEFT HAND, EXCISION: Benign fibroma 11/24/2023 1:54 PM CDT [facility] Clinical Information Left hand mass 11/24/2023 1:54 PM CDT [facility] Gross Description A) Received in formalin, labeled with the patient's name and left hand mass permanent, is a 0.3 x 0.3 x 0.2 cm coffey tissue fragment. ??The specimen is inked green and submitted in toto in 1 cassette. ?? JPW 11/21/2023 11/24/2023 1:54 PM CDT [facility] Microscopic Description The final diagnosis is based on microscopic examination of appropriate sections of all specimens. 11/24/2023 1:54 PM CDT [facility] Additional Information Interpreted at [facility] - [address], [place] [address] 11/24/2023 1:54 PM CDT [facility] Tissue (Left Hand) 11/21/2023 11:22 AM CDT 11/21/2023 12:41 PM CDT Richard Bobo MD PATHOLOGY/[facility] [address] [place] [address], [facility] SENDOUT INTERNAL ZIP [address] [address] [place] [address] * ANTI HCV (07/28/2014 3:03 PM HEALTH PSYCHOLOGIST) HEPATITIS C ANTIBODY Non-Reacti ve Non-Reacti ve 07/28/2014 8:36 PM HEALTH PSYCHOLOGIST [facility] Blood specimen (specimen) BLOOD SPECIMEN / Unknown Venipuncture / Unknown 07/28/2014 3:03 PM HEALTH PSYCHOLOGIST 07/28/2014 3:04 PM HEALTH PSYCHOLOGIST Narrative [facility] - 07/28/2014 8:36 PM HEALTH PSYCHOLOGIST Antibodies to HCV not detected; does not exclude the possibility of exposure to HCV. Aydee JADE SEND OUTS [facility] [address] [place] [address], from Last 3 Months or Most Recently Relevant to Health Maintenance Advance Directives * Full Code (Latest Code Status on File) Date Activated Date Inactivated Comments 11/21/2023 10:09 AM 11/21/2023 1:57 PM Question Answer Comments Code Status Discussion: Reviewed Preferences * Full Code Date Activated Date Inactivated Comments 08/19/2011 12:53 AM 08/21/2011 4:02 PM Care Teams Traffic Analyst Relationship Specialty Start Date End Date Fernando Rayo DO [address] [place] [address] PCP - General Family Practice 10/31/23 Cinda Deshpande [address] [place] [address] Psychiatry Psychiatry 10/28/11
--- OUTSIDE RECORDS SUMMARY | 2024-02-04 00:30 | XMS_ITS | Encounter Summary ---
Author Organization [facility] Address [address] [place] [address] Care Team Providers Care Secondary English Teacher Name Role Phone Randy Cullen MD Primary Care Provider Unavailabl e Encounter Details Date Type Department Care Team (Latest Contact Info) Description 05/13/[facility] [address] [place] [phone] [place] [address] [place] [address] [phone] Pre-employment examination (Primary Dx) Social History Tobacco Use Types Packs/Day Years [...] as of this encounter Plan of Treatment Scheduled Orders Name Type Priority Associated Diagnoses Orde r Schedule Hepatitis B Surface Ab, Qual/Quant, Serum Lab Routine Pre-employment examination Expected: 05/13/2019, Expires: 05/13/2020 documented as of this encounter Results * XR Spine Lumbar 2 Or 3 Views (05/13/2019 2:36 PM PST) Anatomical Region Laterality Modality Spine, L-spine Computed Radiogr aphy 05/13/2019 2:52 PM PST Impressions 05/13/2019 2:53 PM PST Normal AP and lateral L-spine. ?? This report was generated using speech recognition software. Signed by: Rd Guevara MD Narrative 05/13/2019 2:53 PM PST LUMBAR SPINE AP AND LATERAL HISTORY: Pre-employment examination COMPARISON: None. FINDINGS: No evidence for compression of the vertebral bodies or narrowing of the disc spaces is noted. ??The posterior elements are intact and vertebral alignment is normal. No metastases or paraspinous mass is identified. Procedure Note Rd Guevara MD - 05/13/2019 LUMBAR SPINE AP AND LATERAL HISTORY: Pre-employment examination COMPARISON: None. FINDINGS: No evidence for compression of the vertebral bodies or narrowing of thedisc spaces is noted. The posterior elements are intact and vertebralalignment is normal. No metastases or paraspinous mass is identified. IMPRESSION: Normal AP and lateral L-spine. This report was generated using speech recognition software. Signed by: Rd Guevara MD Bishnu Hartley MD IMG XR PROCEDUR ES documented in this encounter Visit Diagnoses Diagnosis Pre-employment examination- Primary documented in this encounter Care Teams Secondary English Teacher Relationship Specialty Start Date End Date Randy Cullen MD PCP - General Internal Medicine 06/10/17 documented as of this encounter
--- OUTSIDE RECORDS SUMMARY | 2024-02-04 00:30 | XMS_ITS | Encounter Summary ---
Author Organization [facility] Address [address] [place] [id number] Phone Care Team Providers Care Records And Tape Recordings Engineer Name Role Phone Unavailable Primary Care Provider Unavailabl e Encounter Details Date Type Department Care Team (Latest Contact Info) Description 01/31/2024 Travel Social History Tobacco Use Types Packs/Day Years [...] documented as of this encounter Visit Diagnoses Not on filedocumented in this encounter
--- OUTSIDE RECORDS SUMMARY | 2024-02-04 00:30 | XMS_ITS | Encounter Summary ---
Author Organization [facility] Address [address] [place] [address] Care Team Providers Care Dental Treatment Coordinator Name Role Phone Randy Cullen MD Primary Care Provider Unavailabl e Reason for Visit * Reason Onset Date Comments Med Refill 12/16/2018 Encounter Details Date Type Department Care Team (Late st Contact Info) Description 12/16/2018 Refill [facility] [address] [place] [address] Michael Mcnamara MD [address] [address] Social History Tobacco Use Types Packs/Day Years [...] Diagnoses Not on filedocumented in this encounter Care Teams Dental Treatment Coordinator Relationship Specialty Start Date End Date Randy Cullen MD PCP - General Internal Medicine 06/10/17 documented as of this encounter
[2024-02-04 00:33] LABS: C Reactive Protein* 18.2 mg/dL (0.5-1.0)
[2024-02-04] MEDS: PIPERACILLIN/TAZOBACTAM 4.5 GM in 0.9 % SODIUM CHLORIDE Mini-bag 100 ML IVPB ×4 (03:00→21:16)
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
[2024-02-04 06:50] LABS: Magnesium* 2.4 mg/dL (1.5-2.6)
[2024-02-04] MEDS: KETOROLAC 30 MG/ML inj 15 MG IVP ×3 (07:37→21:28)
--- NOTE | 2024-02-04 07:49 | PC.NURSE ---
Pt came to the unit around 0130. Pt is alert and oriented x3. Afebrile. Pt rates pain 6-8/10 in right knee, managed with PRN medication. Right leg redness outlined. Pt is up ad robert in room and voiding and tolerating regular diet.?
[2024-02-04] MEDS: SODIUM CHLORIDE 0.9 % (FLUSH) 10 ML SYRINGE 5 ML IVF (08:32)
[2024-02-04] MEDS: ESCITALOPRAM 10 MG TABLET 20 MG PO (08:32)
--- NOTE | 2024-02-04 09:35 | CRLHL7_ITS ---
For Patients: As a result of the 21st Century Cures Act, medical imaging exams and procedure reports are released immediately into your electronic medical record. You may view this report before your referring provider. If you have questions, please contact your health care provider. EXAM: CT OF THE RIGHT KNEE, WITHOUT CONTRAST CLINICAL INDICATION: Wound 1 week prior. Cellulitis. COMPARISON STUDIES: None. TECHNICAL: Non-contrast CT of the knee with axial images. Sagittal oblique and coronal oblique reformatted images were created. FINDINGS: OSSEOUS STRUCTURES: Femur: No fracture. Tibia: No fracture. Fibula: No fracture. Patella: No fracture. JOINT SPACE: Knee Joint: Trace knee joint effusion without synovitis. Findings are likely reactive, however infection can not be excluded. Medial Compartment: No joint space narrowing, hypertrophic change or subchondral cystic change. Lateral Compartment: No joint space narrowing, hypertrophic change or subchondral cystic change. Patellofemoral Compartment: No joint space narrowing, hypertrophic change or subchondral cystic change. EXTENSOR MECHANISM: Distal Quadriceps Tendon: No tear or tendinopathy. Patellar Tendon: No tear or tendinopathy. Patellar Retinaculum: Normal. Patellar Alignment: No tilt or subluxation. SOFT TISSUES: There is prominent subcutaneous edema involving the entire width of the subcutaneous tissues at the anterolateral aspect of the knee. There is a 0.2 cm focal area of subcutaneous emphysema within the prominent subcutaneous edema. There is additional mild to moderate diffuse subcutaneous edema involving the proximal aspect of the tibial and fibular region and anterior, lateral and posterior aspect of the distal thigh. No discrete subcutaneous fluid collection. 0.2 cm cutaneous density in the anteriorly consistent with a small foreign body. 0.3 cm linear density in the anteromedial aspect of the proximal tibial metaphysis consistent with an additional foreign body. MUSCLES AND TENDONS: No intramuscular hematoma or fluid collection. No muscle atrophy. No retracted tendon tear. NEUROVASCULAR STRUCTURES: No abnormality of the visualized neurovascular structures. IMPRESSION: 1. Subcutaneous edema extends from the distal thigh to the proximal tibial fibular region most prominent in the anterolateral aspect of the knee. Small focus of subcutaneous emphysema in the anterolateral knee. No discrete fluid collection. 2. Small anterior cutaneous foreign body and small subcutaneous anteromedial foreign body. 3. Trace knee joint effusion. Findings are likely reactive, however infection can not be excluded. Please note that all CT scans at this facility use dose modulation, iterative reconstruction, and/or weight-based dosing when appropriate to reduce radiation dose to as low as reasonably achievable. Dictated by Nik Dunaway MD @ 02/04/2024 11:12:28 AM (Electronically Signed)
[2024-02-04] MEDS: ACETAMINOPHEN 325 MG TABLET 1000 MG PO (11:55)
--- NOTE | 2024-02-04 13:24 | PC.PHA ---
Vancomycin consult note: Indication for vancomycin: leg/knee infection Age: 38 yr old Height: 185.4 cm Weight: 90.3 kg Most recent SCr: 0.9 Estimated CrCL: 128 ml/min Recommended dose and frequency: Vancomycin 1500mg IV Q12h to obtain an estimated AUC/CHAVA of 400-600 mcg*hr/m Additional comment: This dose should obtain an AUC of 490 and a trough of 12 at ~17 mg/kg per dose.
[2024-02-04] MEDS: ONDANSETRON 2 MG/ML inj 4 MG IVP (13:57)
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
[2024-02-04] MEDS: CYCLOBENZAPRINE HCL 10 MG TABLET PO (14:42)
[2024-02-04] MEDS: hydrOXYzine pamoate 25 MG CAPSULE PO (14:42)
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
[2024-02-05] MEDS: VANCOMYCIN 1.5 GM/300 ML 1.5 GM/300 ML PIGGYBACK IVPB ×2 (00:12→11:33)
[2024-02-05] MEDS: PIPERACILLIN/TAZOBACTAM 4.5 GM in 0.9 % SODIUM CHLORIDE Mini-bag 100 ML IVPB ×4 (02:27→20:38)
[2024-02-05 02:34] VITALS: BP 131/84; PULSE 51; RESP 20; TEMP 36.6; O2SAT 99
--- NOTE | 2024-02-05 06:31 | PC.NURSE ---
End of shift note ([id number]): Patient pleasant, alert and oriented. Independent in room. Given PRN Ketorolac once for pain in right leg rated?5/10. Reported tolerating pain since that time. Dressing changed to IV as was loose. Redness and swelling to right lower extremity continues but remain within marked outline.
[2024-02-05 06:56] LABS: Hematocrit 36.3 % (37.0-53.0); Hemoglobin* 11.7 gm/dL (13.5-17.5); Mean Corpuscular HGB Conc 32 gm/dL (32-36); Mean Corpuscular Hemoglobin 29 pg (26-34); Mean Corpuscular Volume 90 fL (80-100); Platelet Count* 248 K/uL (140-440); Red Blood Count 4.03 m/uL (4.30-5.90); White Blood Count* 7.71 K/uL (4.50-11.00)
[2024-02-05 07:00] VITALS: BP 128/82; PULSE 61; RESP 16; TEMP 36.6; O2SAT 97
[2024-02-05 07:09] LABS: Slide Review Reflex No
[2024-02-05 07:10] LABS: Chloride* 106 mmol/L (96-114); Potassium* 3.9 mmol/L (3.6-5.1); Sodium* 139 mmol/L (135-149)
[2024-02-05 07:13] LABS: Est. Creatinine Clearance* 115.41; Estimated Glomerular Filt Rate 100 ml/min
[2024-02-05 07:14] LABS: Anion Gap 5 mEq/L (7-15); Blood Urea Nitrogen* 13 mg/dL (5-24); Calcium* 8.9 mg/dL (8.4-10.6); Carbon Dioxide* 28 mmol/L (20-32); Glucose* 104 mg/dL (60-115)
[2024-02-05] MEDS: ESCITALOPRAM 10 MG TABLET 20 MG PO (08:25)
[2024-02-05] MEDS: SODIUM CHLORIDE 0.9 % (FLUSH) 10 ML SYRINGE 5 ML IVF ×4 (08:51→21:59)
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
[2024-02-05 11:00] VITALS: BP 139/82; PULSE 57; RESP 16; TEMP 36.6; O2SAT 97
[2024-02-05] MEDS: CYCLOBENZAPRINE HCL 10 MG TABLET PO (11:41)
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
[2024-02-05 15:00] VITALS: BP 138/77; PULSE 50; RESP 16; TEMP 37.1; O2SAT 98
--- NOTE | 2024-02-05 18:57 | PC.NURSE ---
End of shift [id number]: Pt is A&O, afebrile and VSS. He is up ad robert in his room with a steady gait. Pt reports RLL pain at a 4/10 denying pain meds throughout the day. Provided an ice pack this afternoon d/t c/o increased warmth & redness. Redness has not exceeded the outlined margins & has actually receded in some areas. Right anterior knee wounds moisturized with lotion, x2 sutures intact & to be removed in 2 days. Pt denies any nausea or dizziness. PIV in left wrist was leaking after his shower so new PIV placed in left FA. Shower done this morning. Plan is to continue IV abx for a couple more days and transition to PO abx for discharge home. ?
[2024-02-05 19:00] VITALS: BP 135/81; PULSE 59; RESP 18; O2SAT 93
[2024-02-05] MEDS: ONDANSETRON 2 MG/ML inj 4 MG IVP (21:39)
[2024-02-05] MEDS: HYDROmorphone 0.5 mg/0.5 ml inj IVP (21:58)
[2024-02-05 23:00] VITALS: BP 126/78; PULSE 51; RESP 18; TEMP 36.6; O2SAT 98
[2024-02-06] VITALS (9 sets, daily range): BP systolic 107–146; BP diastolic 85–92; PULSE 51–66; RESP 16–18; TEMP 36.2–37; O2SAT 96–100
[2024-02-06] MEDS: VANCOMYCIN 1.5 GM/300 ML 1.5 GM/300 ML PIGGYBACK IVPB ×3 (00:51→23:37)
[2024-02-06] MEDS: KETOROLAC 30 MG/ML inj 15 MG IVP (01:12)
[2024-02-06] MEDS: HYDROmorphone 0.5 mg/0.5 ml inj IVP ×4 (01:13→15:01)
[2024-02-06] MEDS: PIPERACILLIN/TAZOBACTAM 4.5 GM in 0.9 % SODIUM CHLORIDE Mini-bag 100 ML IVPB ×3 (02:47→14:09)
--- NOTE | 2024-02-06 06:33 | PC.NURSE ---
End of shift note ([id number]): Patient pleasant, alert and oriented. Independent in room. Given PRN Zofran for c/o nausea. Pt reported increased pain to right lateral knee during the night. Right lateral knee very warm to touch and appeared to have increased redness. Ice pack applied. Redness improved some.?Redness seems to have receded some in other areas within outline.?Given PRN Ketorolac and Dilaudid?for pain rated?8-9/10 in right knee.
[2024-02-06 06:39] LABS: Hematocrit 38.8 % (37.0-53.0); Hemoglobin* 12.6 gm/dL (13.5-17.5); Mean Corpuscular HGB Conc 33 gm/dL (32-36); Mean Corpuscular Hemoglobin 29 pg (26-34); Mean Corpuscular Volume 90 fL (80-100); Platelet Count* 290 K/uL (140-440); Red Blood Count 4.29 m/uL (4.30-5.90); White Blood Count* 7.53 K/uL (4.50-11.00)
[2024-02-06 06:56] LABS: Slide Review Reflex No
[2024-02-06 07:04] LABS: Chloride* 103 mmol/L (96-114); Potassium* 3.9 mmol/L (3.6-5.1); Sodium* 138 mmol/L (135-149)
[2024-02-06 07:07] LABS: Anion Gap 7 mEq/L (7-15); Blood Urea Nitrogen* 15 mg/dL (5-24); Carbon Dioxide* 28 mmol/L (20-32); Est. Creatinine Clearance* 115.41; Estimated Glomerular Filt Rate 100 ml/min; Glucose* 98 mg/dL (60-115)
[2024-02-06 07:08] LABS: Calcium* 9.1 mg/dL (8.4-10.6)
[2024-02-06 07:10] LABS: C Reactive Protein* 4.7 mg/dL (0.5-1.0)
[2024-02-06] MEDS: ESCITALOPRAM 10 MG TABLET 20 MG PO (08:14)
[2024-02-06] MEDS: SODIUM CHLORIDE 0.9 % (FLUSH) 10 ML SYRINGE 5 ML IVF ×2 (08:15→21:08)
[2024-02-06] MEDS: CYCLOBENZAPRINE HCL 10 MG TABLET PO (09:34)
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
--- NOTE | 2024-02-06 15:27 | PC.NURSE ---
End of shift note (): Pt A&Ox3, pleasant, and cooperative. Indep in room. Continent and using the bathroom frequently. VSS with a high BP this afternoon after returning from MRI. LS COA. Denies H/N/V/CP/SOB. Pt reported pain to R lateral knee and neck pain throughout the shift, PRN medication given. Relief noted. R Knee is warm to touch. Bilateral pedal pulses strong. Ice pack applied. Redness seems to have receded past the outline. Continuing to monitor and manage pain. Pain resting comfortably with call light in reach. ?
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
[2024-02-06] MEDS: BUPIVACAINE 0.25% 30 ML INJECTION (18:00)
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
--- NOTE | 2024-02-06 19:21 | PC.NURSE ---
shift note: pt to OR @ 1715 via bed. pt returned from OR @ 1838 via bed. pt denies pain. Rt l/e elevated on 4 pillows with ice willis to knee. PP+ bilat. IV patent. post vss initiated.
--- NOTE | 2024-02-06 20:16 | PM.EN ---
Chart Event Note Chart Event Note: Meropenem not available here. ID connect not available at this time. Will reorder zosyn and re-address in the morning.
[2024-02-06] MEDS: ERTAPENEM 1 GM in 0.9 % SODIUM CHLORIDE Mini-bag 100 ML IVPB (21:08)
[2024-02-06] MEDS: hydrOXYzine pamoate 25 MG CAPSULE PO (21:12)
[2024-02-06] MEDS: HYDROCODONE-ACETAMIN 5-325 MG 1 TAB PO (21:49)
[2024-02-07 03:02] VITALS: BP 116/72; PULSE 60; RESP 18; TEMP 36.1; O2SAT 92
[2024-02-07] MEDS: HYDROCODONE-ACETAMIN 5-325 MG 1 TAB PO ×2 (06:12→23:56)
--- NOTE | 2024-02-07 06:17 | PC.NURSE ---
End of shift [id number]: A&O pleasant and cooperative. VSS. Reporting 7-8/10 pain in knee. See eMAR for interventions. Dangled, stood and ambulated. Tolerated well. Tolerating regular diet. KERWIN wrap to knee c/d/i. Using call light appropriately. ? ?
[2024-02-07 06:50] LABS: Hematocrit 39.8 % (37.0-53.0); Hemoglobin* 12.9 gm/dL (13.5-17.5); Mean Corpuscular HGB Conc 32 gm/dL (32-36); Mean Corpuscular Hemoglobin 29 pg (26-34); Mean Corpuscular Volume 90 fL (80-100); Platelet Count* 323 K/uL (140-440); Red Blood Count 4.43 m/uL (4.30-5.90); White Blood Count* 10.28 K/uL (4.50-11.00)
[2024-02-07 06:59] LABS: Slide Review Reflex No
[2024-02-07 07:00] VITALS: BP 123/78; PULSE 62; RESP 14; TEMP 36.4; O2SAT 98
[2024-02-07 07:02] LABS: Chloride* 105 mmol/L (96-114); Potassium* 4.2 mmol/L (3.6-5.1); Sodium* 139 mmol/L (135-149)
[2024-02-07 07:05] LABS: Creatinine* 0.9 mg/dL (0.5-1.5); Est. Creatinine Clearance* 131.93; Estimated Glomerular Filt Rate 114 ml/min
[2024-02-07 07:06] LABS: Anion Gap 10 mEq/L (7-15); Blood Urea Nitrogen* 18 mg/dL (5-24); Calcium* 9.2 mg/dL (8.4-10.6); Carbon Dioxide* 24 mmol/L (20-32); Glucose* 128 mg/dL (60-115)
[2024-02-07 07:09] LABS: C Reactive Protein* 3.1 mg/dL (0.5-1.0)
[2024-02-07] MEDS: ESCITALOPRAM 10 MG TABLET 20 MG PO (08:43)
[2024-02-07] MEDS: SODIUM CHLORIDE 0.9 % (FLUSH) 10 ML SYRINGE 5 ML IVF ×2 (08:44→20:19)
[2024-02-07] MEDS: HYDROmorphone 0.5 mg/0.5 ml inj IVP ×5 (10:03→21:00)
[2024-02-07 11:00] VITALS: BP 143/94; PULSE 66; RESP 16; TEMP 37.1; O2SAT 97
[2024-02-07] MEDS: ONDANSETRON 2 MG/ML inj 4 MG IVP (11:57)
[2024-02-07] MEDS: VANCOMYCIN 1.5 GM/300 ML 1.5 GM/300 ML PIGGYBACK IVPB (12:04)
[2024-02-07 15:00] VITALS: BP 138/90; PULSE 61; RESP 16; TEMP 37; O2SAT 97
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
[2024-02-07] MEDS: CYCLOBENZAPRINE HCL 10 MG TABLET PO (16:24)
--- NOTE | 2024-02-07 18:06 | PC.NURSE ---
End of shift note (): Pt A&Ox3, pleasant, and cooperative. Indep in room. Continent and using the bathroom frequently. VSS with elevated?BP. LS COA. Denies H/V/CP/SOB. Pt reported pain to R lateral knee and neck pain throughout the shift, PRN medication given. Relief noted. Pt also stating experiencing nausea this afternoon, PRN medication given. KERWIN wrap to R knee CDI. Ice pack applied. Continuing to monitor and manage pain. Pt resting comfortably with call light in reach, family at bedside.?
[2024-02-07 19:17] VITALS: BP 136/96; PULSE 60; RESP 16; TEMP 35.9; O2SAT 98
[2024-02-07] MEDS: ERTAPENEM 1 GM in 0.9 % SODIUM CHLORIDE Mini-bag 100 ML IVPB (20:20)
[2024-02-07 23:51] VITALS: BP 130/74; PULSE 62; RESP 18; TEMP 37.1; O2SAT 98
[2024-02-08 03:00] VITALS: BP 124/79; PULSE 58; RESP 18; TEMP 36.4; O2SAT 99
[2024-02-08] MEDS: HYDROmorphone 0.5 mg/0.5 ml inj IVP ×2 (03:40→09:18)
[2024-02-08] MEDS: SODIUM CHLORIDE 0.9 % (FLUSH) 10 ML SYRINGE 5 ML IVF ×2 (03:40→09:14)
--- NOTE | 2024-02-08 06:28 | PC.NURSE ---
End of shift [id number]: A&O pleasant and cooperative. VSS. Up ambulating in [place] throughout shift. Dressing to knee c/d/i. Pt reporting pain up to 9/10 in knee. See eMAR for interventions. Using urinal at bedside.
[2024-02-08 06:35] LABS: Hematocrit 37.6 % (37.0-53.0); Hemoglobin* 12.1 gm/dL (13.5-17.5); Mean Corpuscular HGB Conc 32 gm/dL (32-36); Mean Corpuscular Hemoglobin 29 pg (26-34); Mean Corpuscular Volume 90 fL (80-100); Platelet Count* 325 K/uL (140-440); Red Blood Count 4.16 m/uL (4.30-5.90); White Blood Count* 10.01 K/uL (4.50-11.00)
[2024-02-08 06:41] LABS: Slide Review Reflex No
[2024-02-08 06:54] LABS: Chloride* 104 mmol/L (96-114); Sodium* 136 mmol/L (135-149)
[2024-02-08 06:55] LABS: Potassium* 3.8 mmol/L (3.6-5.1)
[2024-02-08 06:57] LABS: Anion Gap 6 mEq/L (7-15); Carbon Dioxide* 26 mmol/L (20-32); Creatinine* 0.9 mg/dL (0.5-1.5); Est. Creatinine Clearance* 131.93; Estimated Glomerular Filt Rate 114 ml/min
[2024-02-08 06:58] LABS: Blood Urea Nitrogen* 17 mg/dL (5-24); Glucose* 86 mg/dL (60-115)
[2024-02-08 07:00] VITALS: BP 144/97; PULSE 58; RESP 16; TEMP 36.6; O2SAT 98
[2024-02-08] MEDS: ESCITALOPRAM 10 MG TABLET 20 MG PO (09:14)
[2024-02-08] MEDS: CYCLOBENZAPRINE HCL 10 MG TABLET PO (09:15)
[2024-02-08] MEDS: VANCOMYCIN 1.5 GM/300 ML 1.5 GM/300 ML PIGGYBACK IVPB ×2 (09:52)
--- NOTE | 2024-02-08 11:47 | PC.NURSE ---
Pt discharged home via ambulation @ 1127, accompanied by family. Pt belonging and discharge papers signed. Pt IV in R wrist is still in place for an infusion scheduled tonight at 2100 & 02/09/24 @ 0900.
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
== END 2024-02-08 11:27 | disposition home or self-care (01) | DRG 603 ==
LOC: ED 02-04 01:05 → MEDSURG 02-04 01:29
PROVIDERS: Orthopaedic Surgery; Admitting Provider Physician Assistant; Emergency Provider Emergency Medicine; PCP Student in an Organized Health Care Education/Training Program; Visit Provider Internal Medicine
PROC: 0J9N0ZX Drainage of Right Lower Leg Subcutaneous Tissue and Fascia, Open Approach, Diagnostic (ICD-10-PCS; principal; 2024-02-06 17:00)
DX: L03.115 Cellulitis of right lower limb (principal); Z16.24 Resistance to multiple antibiotics; L02.415 Cutaneous abscess of right lower limb; S81.021A Laceration with foreign body, right knee, initial encounter; B95.62 Methicillin resistant Staphylococcus aureus infection as the cause of diseases classified elsewhere; B96.20 Unspecified Escherichia coli [E. coli] as the cause of diseases classified elsewhere; B96.89 Other specified bacterial agents as the cause of diseases classified elsewhere; F32.A Depression, unspecified; F41.9 Anxiety disorder, unspecified; F41.0 Panic disorder [episodic paroxysmal anxiety]; F90.9 Attention-deficit hyperactivity disorder, unspecified type; F15.11 Other stimulant abuse, in remission; V48.0XXA Car driver injured in noncollision transport accident in nontraffic accident, initial encounter
CPT/HCPCS: 00400; 36415; 73700; 73721; 80048; 80202; 83735; 84145; 85025; 85027; 86140; 87070; 87075; 87081; 87186; 87205; 93971; 99140; 99283; 99285; A9270; G0378; J0665; J1100; J1170; J1335; J1885; J2405; J2543; J2704; J3010; J3372; J3490

== ENCOUNTER 2024-02-09 08:58 | Outpatient (RCR) | payer OTHER, SELFPAY ==
[2024-02-08] MEDS: 0.9 % SODIUM CHLORIDE 250 ml IV (21:13)
[2024-02-08] MEDS: ERTAPENEM 1 GM in 0.9 % SODIUM CHLORIDE Mini-bag 100 ML IVPB (21:14)
[2024-02-08 21:24] VITALS: BP 129/75; RESP 16; TEMP 36.8; O2SAT 98
[2024-02-08] MEDS: VANCOMYCIN 1.5 GM/300 ML 1.5 GM/300 ML PIGGYBACK IVPB (21:52)
[2024-02-08] MEDS: SODIUM CHLORIDE 0.9 % (FLUSH) 10 ML SYRINGE 5 ML IVF (23:25)
--- NOTE | 2024-02-08 23:31 | PC.NURSE ---
Pt arrived for outpatient infusion at 2100 this evening and discharged at 2328. Pt received ordered doses of IV Ertapenem and Vancomycin with no complications noted. VS completed and charted. IV to R wrist patent and SL with tubigrip protective sleeve in place.
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
[2024-02-09] MEDS: VANCOMYCIN 1.5 GM/300 ML 1.5 GM/300 ML PIGGYBACK IVPB (09:11)
--- NOTE | 2024-02-09 11:01 | PC.NURSE ---
Patient arrived for IV infusion around 0900. Patient did not have any complaints. Dr. Sanchez saw patient and discontinued IV antibiotics going forward and to start taking an oral antibiotic. After infusion completed, RN removed IV and was intact.
== END 2024-05-09 23:59 | disposition home or self-care (01) ==
LOC: MS OUT 08:58
PROVIDERS: PCP Student in an Organized Health Care Education/Training Program; Visit Provider Family Medicine
DX: L02.415 Cutaneous abscess of right lower limb (principal)
CPT/HCPCS: 96365; 96366; G0463; J1335; J3372; J7050